=== PATIENT | male | born 1970 | race Caucasian/White ===

== ENCOUNTER 2023-12-24 10:36 | Emergency (ER) | payer SELFPAY ==
[2023-12-24 11:20] VITALS: BP 146/87
--- NOTE | 2023-12-24 12:28 | ED.GENMED ---
History of Present Illness
General
Chief Complaint: Skin Surface Trauma
Source: patient
Exam Limitations: none
Time Seen by Provider: 12/24/23 11:42
Nursing documentation reviewed up to this point in time: agreed with
History of Present Illness
History of Present Illness:
53-year-old male presenting to the emergency department today with concerns of left-sided knee laceration just below the knee from a chainsaw that was not on a was previously using went through his pants. Bleeding controlled with pressure at that
point. Denies numbness weakness or additional concerns able to ambulate well.
Review of Systems
Review of Systems
Allergies reviewed?: Yes
All Other Systems: ROS reviewed and negative except as documented in HPI and ROS
Phy Exam
Physical Exam
Physical Exam:
GENERAL: Alert , in no apparent distress
EYE: pupils equal and reactive
NECK: Supple, no significant adenopathy.
ENT: o/p clr, mmm.
CARDIAC: Regular rate and rhythm .
LUNGS: Clear breath sounds bilaterally, no acute respiratory distress, no wheezes/rales/rhonchi
ABDOMEN: Soft, without focal tenderness, no r/g, no cvat
NEUROLOGICAL: Alert and oriented, no focal neuro deficits
SKIN: 5 cm laceration just inferior to the anterior knee slightly lateral. Subcutaneous in depth. No tendon involvement warm and dry, skin intact.
MUSCULOSKELETAL: No edema, well perfused.
PSYCH: Normal and appropriate interaction.
Course
Vital Signs
Initial and Last Documented VS:
Initial Vital Signs
Temp Pulse Resp BP Pulse Ox
97.5 F 68 18 146/87 97
12/24/23 11:20 12/24/23 11:20 12/24/23 11:20 12/24/23 11:20 12/24/23 11:20
Last Documented Vital Signs
Temp Pulse Resp BP Pulse Ox
97.5 F 68 16 146/87 97
12/24/23 11:20 12/24/23 11:20 12/24/23 12:00 12/24/23 11:20 12/24/23 11:20
Procedures
Laceration Closure
Left Inferior Anterior Knee:
Status of Wound: clean
Size of Wound in cm: 5
Description of Wound Edges: sharp
Preparation: cleaned with saline
Anesthesia: 1% Lidocaine with epi
Revision/Debridement: minor revision and irrigate-direct pressure
Wound exploration: explored to base- no FB and no tendon involvement
Type of Closure: single layer closure
Skin Closure Material: 3-0 nylon
Number of sutures: 7
MDM/Problems Addressed
MDM/Problems Addressed:
53-year-old male presenting to the emergency department today with concerns of a laceration just below the left anterior knee. Very clean in appearance. Cleaned out thoroughly here. He claims that his tetanus shot is up-to-date. No risk factors
for infection. Patient was stitched with 7 nondissolving stitches advised for follow-up in 12 to 14 days for suture removal. Return precautions given.
*Critical Care Note
Total Time (30-74mins, 75-104mins- exclusive of procedures): Not Applicable
ED Attending Note
-
Portions of this chart may have been created with voice recognition software.� Occasional wrong word or��sound alike� substitutions may have occurred due to the inherent limitations of voice recognition software.
Discharge Plan
Departure
Patient Disposition: Home (Routine Discharge)
Date of Disposition: 12/24/23
Time of Disposition: 12:32
Patient with high blood pressure during this ER visit?: No
Condition: Good
Covid-19: Not Applicable
Discharge Problem:
Laceration of leg
Instructions: Laceration Repair With Stitches (DC)
Referrals:
Jacky Kaur DO [Family Provider] -
Activity Restrictions/Additional Instructions:
You came to the emergency department today for concerns of a laceration to your left knee. You had 7 9 dissolving stitches placed. Please keep area clean covered and follow-up in 12 to 14 days for suture removal. Return to the emergency
department for any worsening, new or concerning symptoms.
Interventions
Interventions:
*Risk Screen - Suicide Last Done: 12/24/23 11:20
*General Assessment Last Done: 12/24/23 11:20
*Neglect/Abuse Screening Last Done: 12/24/23 11:20
*ED COVID-19 Vaccine History Last Done: 12/24/23 11:20
Discharge Date and Time
Print Language: SYRIAN
[2023-12-24 12:38] VITALS: BP 139/78
== END 2023-12-24 12:39 | disposition home or self-care (01) ==
LOC: EMR 10:36
PROVIDERS: EMERGENCY PHYSICIAN Emergency Medicine; FAMILY PHYSICIAN Family Medicine
DX: S81.012A Laceration without foreign body, left knee, initial encounter (principal); W29.3XXA Contact with powered garden and outdoor hand tools and machinery, initial encounter
CPT/HCPCS: 99282; 12002